=== PATIENT | male | born 1940 | race Caucasian/White ===

== ENCOUNTER 2016-08-01 12:52 | Emergency (ER) | payer OTHER, MEDICARE ==
[2016-08-01 12:59] VITALS: RESP 18
--- NOTE | 2016-08-01 13:06 | EDPHY ---
H & P Time Seen by Provider: 08/01/16 13:05 HPI/ROS: CHIEF COMPLAINT: Sore throat HISTORY OF PRESENT ILLNESS: This 76-year-old man presents with sore throat that started earlier today and has lasted all day today. He says it is on both sides and feels like it is hard to swallow. No dental symptoms and no fever or chills. No ear symptoms. No headache. No trouble breathing. REVIEW OF SYSTEMS: Otherwise negative PAST MEDICAL HISTORY: Includes coronary disease with stenting, bladder cancer, diverticulitis with colon resection, appendectomy, lumbar spine surgery, arthritis. Social history: Current nonsmoker. General Appearance: Alert and conversant, cooperative. Patient has some pharyngeal erythema but no exudate. No trismus. Normal voice and no stridor and no drooling. Normal range of motion of the neck. Normal tympanic membranes bilaterally. No facial swelling. Emergency Department course/MDM: Patient has likely viral pharyngitis. Strep test is negative. Antibiotics do not appear to be clinically indicated. Oral dexamethasone discussed and consented 10 mg. I think deep space oral infection or epiglottitis or retropharyngeal abscess or Alonso's angina are all unlikely. Does not appear to be dental. Smoking Status: Former smoker Constitutional: Initial Vital Signs Temperature (C) 37 C 08/01/16 12:56 Heart Rate 74 08/01/16 12:56 Respiratory Rate 18 08/01/16 12:56 Blood Pressure 118/80 08/01/16 12:56 O2 Sat (%) 96 08/01/16 12:56 O2 Delivery Mode Room Air Allergies/Adverse Reactions: ciprofloxacin [Ciprofloxacin] Allergy (Verified 08/01/16 12:55) metronidazole [From Flagyl] Allergy (Verified 08/01/16 12:55) Metronidazole HCl [From Flagyl] Allergy (Verified 08/01/16 12:55) sulfamethoxazole [From Bactrim] Allergy (Verified 08/01/16 12:55) trimethoprim [From Bactrim] Allergy (Verified 08/01/16 12:55) Home Medications: Medication Instructions Recorded Metoprolol Tartrate 25 mg PO 01/12/12 Metamucil 04/30/13 Coq-10 07/17/13 Crestor 07/17/13 Ramipril 07/17/13 Oxycodone HCl 09/24/13 Vicodin 5-300 mg Tablet 09/24/13 Vitamin D3 09/24/13 Apixaban [Eliquis] 5 mg PO BID 30 Days 01/22/16 Cephalexin [Keflex (*)] 500 mg PO Q6 7 Days 03/05/16 MDM/Departure - MDM Medications Given: Discontinued Medications Dexamethasone (Decadron Injection) 10 mg IVP EDNOW ONE Stop: 08/01/16 13:30 Last Admin: 08/01/16 13:35 Dose: 10 mg - Depart Disposition: Home, Routine, Self-Care Clinical Impression: Acute pharyngitis Condition: Good Instructions: Pharyngitis (ED) Additional Instructions: negative strep test Referrals: STEFANIA NUNN [Primary Care Provider] - As per Instructions
[2016-08-01] MEDS ORDERED: DEXAMETHASONE 10 MG/ML VIAL IVP ONE (13:29)
[2016-08-01 13:48] VITALS: BP 121/80; PULSE 72; TEMP 96.8; O2SAT 97
== END 2016-08-01 13:45 | disposition home or self-care (01) ==
DX: J02.9 Acute pharyngitis, unspecified (principal); I25.10 Atherosclerotic heart disease of native coronary artery without angina pectoris; Z85.51 Personal history of malignant neoplasm of bladder; Z87.891 Personal history of nicotine dependence
CPT/HCPCS: 96374

== ENCOUNTER 2016-11-25 21:21 | Emergency (ER) | payer OTHER, MEDICARE ==
[2016-11-25 21:28] VITALS: RESP 16; TEMP 98.1
--- NOTE | 2016-11-25 21:37 | EDPHY ---
H & P Time Seen by Provider: 11/25/16 21:35 HPI/ROS: CHIEF COMPLAINT: Abdominal pain HISTORY OF PRESENT ILLNESS: This patient is a 76 year old male with history of diverticulitis and partial bowel resection who presents to the Emergency Department complaining of acute abdominal pain beginning yesterday at 1600. He was seen by his PCP, Dr. Stefania Musa, today who suspected diverticulitis and sent him to the infusion center for 1gm IV Invanz in the office today. He reports that his pain has increased over time despite the infusion, prompting him to come to the ED. Upon arrival, he describes his pain as moderate, localized to the left side of his abdomen, without any identified alleviating or exacerbating factors. He reports one episode of diarrhea shortly prior to arrival that he attributes to Invanz. He denies any nausea or vomiting. Medical history also includes appendectomy. REVIEW OF SYSTEMS: Constitutional: No fever, no chills Eyes: No visual changes ENT: No sore throat Respiratory: No cough, no shortness of breath Cardiac: No chest pain Gastrointestinal: As in HPI Genitourinary: No hematuria, no dysuria Musculoskeletal: No leg pain or swelling Skin: No rash Neurological: No headache, no numbness, no weakness Psychiatric: No depression Past Medical/Surgical History: Diverticulitis with partial small bowel resection, appendectomy, CAD with stenting, lumbar spine surgery, bladder cancer, arthritis Social History: Former smoker, , lives in [place] Smoking Status: Former smoker Physical Exam: General Appearance: Alert, no distress Eyes: Pupils equal and round, no conjunctival pallor or injection ENT, Mouth: Mucous membranes moist Neck: Normal inspection Respiratory: Lungs are clear to auscultation Cardiovascular: Regular rate and rhythm Gastrointestinal: Abdomen is soft, LLQ and LUQ tenderness to palpation Neurological: A&O, nonfocal, normal gait Skin: Warm and dry, no rash Extremities: Nontender, no pedal edema Psychiatric: Mood and affect normal Constitutional: Initial Vital Signs Temperature (C) 36.7 C 11/25/16 21:24 Heart Rate 73 11/25/16 21:24 Respiratory Rate 16 11/25/16 21:24 Blood Pressure 110/68 11/25/16 21:24 O2 Sat (%) 96 11/25/16 21:24 O2 Delivery Mode Room Air Allergies/Adverse Reactions: ciprofloxacin [Ciprofloxacin] Allergy (Verified 08/01/16 12:55) metronidazole [From Flagyl] Allergy (Verified 08/01/16 12:55) Metronidazole HCl [From Flagyl] Allergy (Verified 08/01/16 12:55) sulfamethoxazole [From Bactrim] Allergy (Verified 08/01/16 12:55) trimethoprim [From Bactrim] Allergy (Verified 08/01/16 12:55) Home Medications: Medication Instructions Recorded Metoprolol Tartrate 25 mg PO 01/12/12 Metamucil 04/30/13 Coq-10 07/17/13 Crestor 07/17/13 Ramipril 07/17/13 Apixaban [Eliquis] 5 mg PO BID 30 Days 01/22/16 Medical Decision Making - Diagnostics Imaging Results: CT scan of the abdomen and pelvis read by Dr. Ezra Anderson reveals diverticulitis the descending colon, a RCA stent and a 3 cm abdominal aortic aneurysm, slightly increased in size from previously. ED Course/Re-evaluation: This 76-year-old male has a history of diverticulitis resolved following bowel resection 8-10 years ago who presents with LLQ abdominal pain presenting yesterday at 1600 and remaining constant over time. He was given IV Invanz today at the request of his PCP who suspected recurrent diverticulitis; this has not improved his pain. Upon arrival, he is alert and well-appearing. He has LUQ and LLQ tenderness on exam but no additional findings. He brings his lab results from today with him, so we will not proceed with additional labs at this time. Will proceed with CT of the abdomen. Creatinine is at 1.27 based on lab work completed at [facility] today. Differential Diagnosis: The differential diagnosis for the patient's abdominal pain included but was not limited to diverticulitis, cholecystitis, hernias, testicular torsion, gastritis, and urinary tract infection. Departure - Departure Disposition: Home, Routine, Self-Care Clinical Impression: Diverticulitis Qualifiers: Diverticulitis site: large intestine Diverticulitis bleeding: without bleeding Diverticulitis complication: without perforation or abscess Qualified Code(s): K57.32 - Diverticulitis of large intestine without perforation or abscess without bleeding Condition: Good Instructions: Diverticulitis (ED) Additional Instructions: You have a 3cm aortic aneurysm, slightly increased in size from 2012. Referrals: STEFANIA MUSA [Primary Care Provider] - As per Instructions Report Scribed for: Milagro Guzman Report Scribed by: Darlene Moyer Date of Report: 11/25/16 Time of Report: 21:36 Physician Review and Approval Statement: 11/25/16 21:36 Portions of this note were transcribed by a chief medical physicist. I personally performed a history, physical exam, medical decision making, and confirmed accuracy of information the transcribed note.
[2016-11-25] MEDS ORDERED: IOPAMIDOL (ISOVUE-300) 100 ML BTL ONE (22:10)
[2016-11-25 23:04] VITALS: BP 124/78; PULSE 71; O2SAT 93
== END 2016-11-25 23:03 | disposition home or self-care (01) ==
DX: K57.32 Diverticulitis of large intestine without perforation or abscess without bleeding (principal); I25.10 Atherosclerotic heart disease of native coronary artery without angina pectoris; Z90.49 Acquired absence of other specified parts of digestive tract; Z85.51 Personal history of malignant neoplasm of bladder; Z87.891 Personal history of nicotine dependence; Z95.5 Presence of coronary angioplasty implant and graft
CPT/HCPCS: 74177; 99285; Q9967

== ENCOUNTER → 2017-04-22 | Outpatient (CLI) | payer OTHER, MEDICARE | LOC: BHFA 16:00 | PROVIDERS: ATTEND Internal Medicine Cardiovascular Disease | DX: I25.10 Atherosclerotic heart disease of native coronary artery without angina pectoris (principal) ==

== ENCOUNTER → 2018-02-10 | Emergency (ER) | payer OTHER, MEDICARE ==
[~2018-02-10] MED LIST: FAMOTIDINE 20 MG TAB PO ONE; diphenhydrAMINE 25 MG CAP PO ONE; predniSONE 20 MG TAB PO ONE
--- NOTE | 2018-02-10 13:12 | EDPHY ---
H & P Stated Complaint: STUNG MULTIPLE TIMES R ANKLE BY WASPS/CAUSED HIM TO FALL INJ R THUMB - Personal History Current Tetanus Diphtheria and Acellular Pertussis (TDAP): Yes - Medical/Surgical History Hx Asthma: No Hx Chronic Respiratory Disease: No Hx Diabetes: No Hx Cardiac Disease: Yes Hx Renal Disease: No Hx Cirrhosis: No Hx Alcoholism: No Hx HIV/AIDS: No Hx Splenectomy or Spleen Trauma: No Other PMH: cardiac stents,AFIB bladder CA, diverticulitis, colon resection, appendectomy, prostate laser surgery, lumbar spine surgery, arthritis - Social History Smoking Status: Former smoker Time Seen by Provider: 02/10/18 12:56 HPI/ROS: CHIEF COMPLAINT: Right thumb pain post mechanical fall HISTORY OF PRESENT ILLNESS: 77-year-old male arrives via private vehicle complaining of acute right thumb pain. He was cutting the grass, was stung by multiple yellow jackets to his right ankle, causing him to trip and landed on his outstretched right thumb. Complaining of right 1st metacarpal pain. No wrist pain. No head injury. This was a mechanical incident. He placed a sodium bicarbonate paste on the sting area on his right ankle. He denies: Dyspnea, wheezing, glossal or tonsillar enlargement, change in voice, abdominal pain, nausea, vomiting. REVIEW OF SYSTEMS: A ten point review of systems was performed and is negative with the exception of the items mentioned in the HPI PAST MEDICAL & SURGICAL HISTORY: No history of anaphylaxis SOCIAL HISTORY: Nonsmoker no alcohol use PHYSICAL EXAM (Prior to examination, patient consented to physical exam, hands were washed and my usual and customary physical exam procedures followed) 1) GENERAL: Well-developed, well-nourished, alert and oriented. Appears to be in no acute distress. Smiling shakes my hand appears well 2) HEAD: Normocephalic, atraumatic 3) HEENT: Pupils equal, round, reactive to light bilaterally. Sclera anicteric. Nasopharynx, oropharynx, clear, no lesions. No tonsillar glossal enlargement. Ears bilaterally with normal tympanic membranes. 4) NECK: Full range of motion, no meningeal signs. 5) LUNGS: Clear auscultation bilaterally, no wheezes, no rhonchi, no retractions. 6) HEART: Regular rate and rhythm, no murmur, no heave, no gallop. 7) ABDOMEN: No guarding, no rebound, no focal tenderness, negative McBurney's, negative Barker's, negative Rovsing's, negative peritoneal sign, 8) MUSCULOSKELETAL: Right upper extremity: Tender to palpation 1st metacarpal with no deformity no angulation. Normal cascading of digit. No anatomic snuffbox pain. No wrist pain. Radial ulnar median nerve function intact. Proximally nontender. Right lower extremity: Baking soda paste his in place, removed revealing no visible stinger, no signs of infection, no erythema, no induration, no lymphangitic streaking. Otherwise, Moving all extremities, no focal areas of tenderness, no obvious trauma. No peripheral edema or discoloration. 9) BACK: No CVA tenderness, no midline vertebral tenderness, no fluctuance, no step-off, no obvious trauma, no visual or palpable abnormality. 10) SKIN: No rash, no petechiae. 11) Psychiatric: Patient is oriented X 3, there is no agitation. DIFFERENTIAL DIAGNOSIS: In no particular order including but not limited to hand fracture, sprain, strain, ulnar collateral ligament injury, anaphylaxis (Elena,Flaquita Dulce) Constitutional: Initial Vital Signs Temperature (C) 36.5 C 02/10/18 12:17 Heart Rate 72 02/10/18 12:17 Respiratory Rate 17 02/10/18 12:17 Blood Pressure 122/77 H 02/10/18 12:17 O2 Sat (%) 94 02/10/18 12:17 O2 Delivery Mode Room Air Allergies/Adverse Reactions: ciprofloxacin [Ciprofloxacin] Allergy (Verified 02/10/18 12:16) metronidazole [From Flagyl] Allergy (Verified 02/10/18 12:16) Metronidazole HCl [From Flagyl] Allergy (Verified 02/10/18 12:16) sulfamethoxazole [From Bactrim] Allergy (Verified 02/10/18 12:16) trimethoprim [From Bactrim] Allergy (Verified 02/10/18 12:16) Home Medications: Medication Instructions Recorded Metoprolol Tartrate 25 mg PO 01/12/12 Metamucil 04/30/13 Coq-10 07/17/13 Crestor 07/17/13 Ramipril 07/17/13 Apixaban [Eliquis] 5 mg PO BID 30 Days tablet 01/22/16 EPINEPHrine [Epipen 0.3 MG] 0.3 mg IM ONCE #2 syr 02/10/18 Medical Decision Making - Diagnostics Imaging Results: Imaging Impressions Finger X-Ray 02/10/18 12:23 Impression: 1. Degenerative changes, with predominant involvement of the first CMC joint. Less severe degenerative arthropathy within the carpus and the DIP joints of the right hand. 2. Radiocarpal chondrocalcinosis. Prior avulsion fracture of the ulnar styloid. Images reviewed by myself (Flaquita Parker) Procedures: Procedure: Splint A Velcro thumb spica splint was applied by ER concrete technician. After application of the splint I returned and re-examined the patient. The splint was adequately immobilizing the joint and distal to the splint the patient's circulation and sensation were intact. Patient shows no signs of compartment syndrome. Was given orthopedic precautions. (Flaquita Parker) ED Course/Re-evaluation: Re-evaluation with serial exams. Discussed his imaging studies showing no signs of definitive fracture. Regarding his bee sting, no evidence of anaphylaxis. I do not think that epinephrine indicated. I have given him dose of H1 H2 sonny and prednisone. We discussed biphasic reaction the which currently has no evidence of. Believe the patient to have decision-making capacity. He feels comfortable being discharged. Recommend follow up with hand surgeon regarding his thumb injury as ulnar collateral ligament injury or other non osseous injury is not ruled out. (Flaquita Parker) Other Provider: The patient was evaluated and managed by the Physician Sawyer Cork Slabs. My co- signature indicates that I have reviewed this chart and I agree with the findings and plan of care as documented. I am the secondary supervising physician. (Patricia Cardona) - Data Points Medications Given: Discontinued Medications Famotidine (Pepcid) 40 mg PO EDNOW ONE Stop: 02/10/18 13:48 Last Admin: 02/10/18 14:11 Dose: 40 mg Prednisone (Prednisone) 60 mg PO EDNOW ONE Stop: 02/10/18 13:48 Last Admin: 02/10/18 14:12 Dose: 60 mg Departure - Departure Disposition: Home, Routine, Self-Care Clinical Impression: Bee sting Qualifiers: Encounter type: initial encounter Injury intent: assault Qualified Code(s): T63.443A - Toxic effect of venom of bees, assault, initial encounter Injury of right thumb Qualifiers: Encounter type: initial encounter Qualified Code(s): S69.91XA - Unspecified injury of right wrist, hand and finger(s), initial encounter Condition: Good Instructions: Insect Bite or Sting (ED), Finger Sprain (ED) Additional Instructions: Return to the ER immediately if you experience discoloration, have worsening pain, numbness, tingling, or any other symptoms that concern you. If you received x-rays in the emergency department today, be advised, that ligamentous , tendon, muscular, and other non-bony injury cannot be fully ruled out. Try to keep your affected extremity elevated above the level of your chest, and keep cold packs on the affected area, for the next 48 hours. Referrals: Rivka Breaux MD [Medical Doctor] - As per Instructions (Dr. Rivka Breaux is a hand surgeon) Prescriptions: EPINEPHrine [Epipen 0.3 MG] 0.3 mg IM ONCE #2 syr
[2018-02-10 14:10] VITALS: BP 135/84
== END | disposition home or self-care (01) ==
DX: S69.91XA Unspecified injury of right wrist, hand and finger(s), initial encounter (principal); T63.443A Toxic effect of venom of bees, assault, initial encounter; Z85.51 Personal history of malignant neoplasm of bladder; Z87.891 Personal history of nicotine dependence; Z95.5 Presence of coronary angioplasty implant and graft; W01.0XXA Fall on same level from slipping, tripping and stumbling without subsequent striking against object, initial encounter; Y99.8 Other external cause status; Y93.A6 Activity, grass drills
CPT/HCPCS: 73140; 99283; J7512; L3807

== ENCOUNTER → 2018-10-19 | Outpatient (CLI) | payer OTHER, MEDICARE | LOC: BHFA 14:30 | PROVIDERS: ATTEND Internal Medicine Cardiovascular Disease | DX: I25.10 Atherosclerotic heart disease of native coronary artery without angina pectoris (principal) ==